=== PATIENT | male | born 1995 | race Caucasian/White ===

== ENCOUNTER → 2022-02-23 | Emergency (ER) | payer BC ==
[~2022-02-23] VITALS: Ht 193 cm; Wt 104.3 kg
[~2022-02-23] MED LIST: DIPH-TET-PERTUS Vaccine 0.5 ML VIAL (ADACEL) I.M. ONE; IBUP-1969 PO; IBUPROFEN 600 MG TABLET PO ONE
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
[2022-02-23 12:41] VITALS: BP_SYST 147
--- NOTE | 2022-02-23 12:53 | NUR ---
ER at bedside examining patient.
--- NOTE | 2022-02-23 12:59 | NUR ---
Patient ambulated to radiology, accompanied by staff.
--- NOTE | 2022-02-23 13:05 | NUR ---
irrigated wound under left knee
--- NOTE | 2022-02-23 13:57 | NUR ---
Patient given written and verbal discharge instructions and verbalizes understanding. ER MD discussed with patient the results and treatment provided. Patient in stable condition. ID arm band removed. Rx of Ibuprofen given. Patient educated on pain management and to follow up with PMD. Pain Scale . Opportunity for questions provided and answered. Medication side effect fact sheet provided.
== END | disposition home or self-care (01) ==
LOC: SED 12:32
DX: S43.112A Subluxation of left acromioclavicular joint, initial encounter (principal); S81.012A Laceration without foreign body, left knee, initial encounter; S43.122A Dislocation of left acromioclavicular joint, 100%-200% displacement, initial encounter; V00.838A Other accident with motorized mobility scooter, initial encounter; Y93.89 Activity, other specified; Y92.89 Other specified places as the place of occurrence of the external cause; Y99.8 Other external cause status
CPT/HCPCS: 73000-TC; 90715; 99283

== ENCOUNTER 2023-03-16 17:04 | Emergency (ER) | payer BC ==
[~2023-03-16] VITALS: Ht 193 cm; Wt 108.9 kg
[~2023-03-16 17:04] MED LIST changes: -DIPH-TET-PERTUS Vaccine 0.5 ML VIAL (ADACEL) I.M. ONE; -IBUPROFEN 600 MG TABLET PO ONE
[2023-03-16 17:05] VITALS: BP_SYST 138
--- NOTE | 2023-03-16 17:35 | NUR ---
Pt BIB mother. C/O lower back injury. Pt states to have been lifting 325 weights when he felt a pop in his back. Pt pain 06/16. Pt states to not have taken any meds for pain. Pt denies NVD. Pt states hx of sciatica. No past surgeries. Pt AAOX4. Pt skin dry and intact. Pt talking in full complete sentences. VSS. Afebrile. Pt standing for comfort of pain.
[2023-03-16] MEDS ORDERED: KETOROLAC TROMETHAMINE 60 MG/2 ML VIAL IM ONE (17:45)
--- NOTE | 2023-03-16 17:45 | NUR ---
ER at bedside examining patient.
--- NOTE | 2023-03-16 18:00 | NUR ---
Pt ambulates with steady gait to radiology department.
--- NOTE | 2023-03-16 19:16 | NUR ---
GAVE REPORT TO [employer] WHEELER
[2023-03-16] MEDS ORDERED: CYCL10TA24 PO (19:45)
[2023-03-16] MEDS ORDERED: IBUP-1969 PO (19:45)
[2023-03-16] MEDS ORDERED: TRAM50TA2 PO (19:45)
[2023-03-16 20:17] VITALS: BP_SYST 138
--- NOTE | 2023-03-16 20:18 | NUR ---
Patient given written and verbal discharge instructions and verbalizes understanding. ER MD discussed with patient the results and treatment provided. Patient in stable condition. ID arm band removed. Rx of FLEXERYL, IBUPROFEN,TRAMADOL given. Patient educated on pain management and to follow up with PMD. Pain Scale 0/10. Opportunity for questions provided and answered. Medication side effect fact sheet provided.
== END 2023-03-16 20:17 | disposition home or self-care (01) ==
LOC: SED 17:04
DX: S32.059A Unspecified fracture of fifth lumbar vertebra, initial encounter for closed fracture (principal); Z79.899 Other long term (current) drug therapy; X50.0XXA Overexertion from strenuous movement or load, initial encounter; Y93.89 Activity, other specified; Y92.89 Other specified places as the place of occurrence of the external cause; Y99.8 Other external cause status
CPT/HCPCS: 99285; 72131; 76376; 96372; J1885